=== PATIENT | female | born 1945 | race Caucasian/White ===

== ENCOUNTER → 2016-11-09 | Outpatient (REF) | payer MEDICARE, OTHER ==
[~2016-11-09] MED LIST: COZA100T2 PO; GLUC500T PO; JANU100T PO; LOSA100T36 PO; METF500T PO; OSPH1TAB PO; OSPHENA PO; PERCOCET PO; SIMV20TA2 PO; VITMTA PO; ZOCAR PO
== END ==
LOC: M LAB REF 12:28
PROVIDERS: ATTEND Internal Medicine
DX: R20.0 Anesthesia of skin (principal)

== ENCOUNTER → 2017-04-30 | Outpatient (CLI) | payer MEDICARE, OTHER ==
[~2017-04-30] MED LIST changes: -METF500T PO; +METF500T13 PO
--- NOTE | 2017-04-30 16:22 | REPMRS ---
Patient History The patient states she had a clinical breast exam in 05/04 Patient is postmenopausal and has history of basal cell skin cancer at age 70. No known family history of cancer. Benign cyst aspiration of the left breast, 1989. Took hormonal contraceptives for 12 years. Took estrogen for 5 years 1 month. Took progesterone for 5 years. Taking unspecified hormones for 1 year. Digital Woman Screen Mammo: April 30, 2017 - Exam #: [id number] Bilateral CC and MLO view(s) were taken. Technologist: Valentina Miller, Technologist Prior study comparison: April 29, 2016, digital woman screen mammo performed at [facility] to [facility]. April 19, 2015, digital woman screen mammo performed at [facility]. May 04, 2014, bilateral bilat screen digital mammo, performed at [facility] ([facility]). FINDINGS: The breast tissue is heterogeneously dense. This may lower the sensitivity of mammography. There is a moderate amount of heterogeneously dense fibroglandular tissue which is fairly symmetric. There is no interval development of dominant mass, architectural distortion, or clustered microcalcification typical of malignancy. There has been no change in the appearance of the mammogram from the prior studies. ASSESSMENT: BI-RADS/ACR category 1 mammogram. Negative. Recommendation Routine screening mammogram of both breasts in 1 year (for women over age 40). This mammogram was interpreted with the aid of an FDA-approved computer-aided dectection system. Electronically Signed By: Nestor Connolly MD 04/30/17 [id number]
== END ==
LOC: M WHC 12:29
PROVIDERS: ATTEND Obstetrics & Gynecology
DX: Z12.31 Encounter for screening mammogram for malignant neoplasm of breast (principal)

== ENCOUNTER → 2018-05-02 | Outpatient (CLI) | payer MEDICARE, OTHER | LOC: M WHC 12:34 | DX: Z12.31 Encounter for screening mammogram for malignant neoplasm of breast (principal) | CPT/HCPCS: 77067 ==

== ENCOUNTER 2019-05-07 09:39 | Emergency (ER) | payer MEDICARE, OTHER ==
[~2019-05-07] VITALS: Ht 162.6 cm; Wt 69.7 kg
[~2019-05-07 09:39] MED LIST changes: -LOSA100T36 PO; +LOSA100T50 PO
[2019-05-07 10:31] LABS: BASO # 0.1 10^3/uL (0.0-0.2); BASO % 0.7 % (0.0-1.0); EOS % 0.1 % (0.0-3.0); LYMPH # 1.6 10^3/uL (1.5-5.0); LYMPH % 21.6 % (24.0-44.0); MEAN CORPUSCULAR HEMOGLOBIN 31.6 pg (27.0-33.0); MEAN CORPUSCULAR HGB CONC 33.3 g/dl (32.0-36.5); MEAN CORPUSCULAR VOLUME 94.8 fl (80.0-96.0); MONO # 0.6 10^3/uL (0.0-0.8); MONO % 8.5 % (0.0-5.0); NEUTROPHILS % 68.3 % (36.0-66.0); PLATELET COUNT, AUTOMATED 195 10^3/uL (150-450); RED BLOOD COUNT 3.48 10^6/uL (4.00-5.40); WHITE BLOOD COUNT 7.3 10^3/uL (4.0-10.0)
--- NOTE | 2019-05-07 10:39 | REP ---
CT study of the cervical spine without contrast: History: Trauma. Comparison radiographs are from November 28, 2015. Technique: Helical scanning is acquired and overlapping 2 mm high resolution axial images were generated and reviewed at bone and soft tissue window settings. Coronal and sagittal multiplanar re-formations images are generated. CT findings: There is no evidence of cervical spine element fracture. No skull base fracture is seen. Cervical vertebral body heights are preserved. Alignment is normal. Facet joints are normally aligned bilaterally at each cervical level on multiplanar re-formations images. There is no evidence of intraspinal or paraspinal hematoma. No extra vertebral abnormality is seen. There are fairly advanced degenerative spondylosis changes in the cervical spine. Degenerative disc changes are most pronounced at C5-6. 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 This is most pronounced on the left at C 03/04 and C4-5. Impression: Degenerative spondylosis changes. Otherwise negative CT study of the cervical spine without contrast. No fracture seen. Electronically Signed by Hamzah Connolly MD 05/07/2019 10:30 A
[2019-05-07 10:42] LABS: INR 1.04; PROTHROMBIN TIME 13.4 SECONDS (11.8-14.0)
--- NOTE | 2019-05-07 10:42 | REP ---
CT brain without contrast: History: Trauma. Findings: Preliminary digital professional sports scout radiograph is unremarkable. The bony calvarium is intact. No skull fracture is appreciated. Visualized paranasal sinuses are clear. No intraorbital abnormality is appreciated. Vascular calcification is observed in the distal vertebral and distal carotid arteries. There is mild generalized volume loss. Periventricular low density pattern is seen consistent with small vessel atherosclerotic changes. No evidence of intracranial hemorrhage is seen. No infarct, mass, extra-axial fluid collection, or midline shift is seen. Impression: Generalized volume loss and small vessel changes. Vascular calcification. No skull fracture or acute intracranial injury. Electronically Signed by Hamzah Connolly MD 05/07/2019 11:25 A
[2019-05-07 10:59] LABS: ALBUMIN 3.6 GM/DL (3.2-5.2); ALT/SGPT 33 U/L (12-78); BILIRUBIN,DIRECT 0.1 MG/DL (0.0-0.2); BILIRUBIN,TOTAL 0.5 MG/DL (0.2-1.0); BLOOD UREA NITROGEN 20 MG/DL (7-18); CARBON DIOXIDE LEVEL 25 MEQ/L (21-32); CHLORIDE LEVEL 101 MEQ/L (98-107); CK-MB VALUE MASS < 1.0 NG/ML (<3.6); CPK CREATINE PHOSPHOKINASE 69 U/L (26-192); FREE T4 0.92 NG/DL (0.76-1.46); GLOMERULAR FILTRATION RATE 46.6 (>39); GLUCOSE, FASTING 175 MG/DL (70-100); MB/CK RELATIVE INDEX 1.45 (< OR =4); POTASSIUM SERUM 4.8 MEQ/L (3.5-5.1); SODIUM LEVEL 135 MEQ/L (136-145); THYROID STIMULATING HORMONE 0.555 uIU/ML (0.358-3.740); TOTAL PROTEIN 7.4 GM/DL (6.4-8.2); TROPONIN I < 0.02 NG/ML (< 0.10)
--- NOTE | 2019-05-07 11:31 | REP ---
Bilateral elbow series: Eight views. History: Trauma. Findings: An intravenous cannula is seen projecting in the antecubital soft tissues on the right. There is no evidence of right-sided fracture or subluxation. No joint effusion is seen on the right. On the left, four views of the elbow demonstrate normal bones, joints and soft tissues. No fracture is seen. Impression: No fracture noted. Electronically Signed by Hamzah Connolly MD 05/07/2019 11:22 A
[2019-05-07] MEDS ORDERED: IBUPROFEN 600 MG TAB PO ONE (11:45)
[2019-05-07 12:15] LABS: INFLUENZA A AMPLIFICATION NEGATIVE (NEGATIVE); INFLUENZA B AMPLIFICATION NEGATIVE (NEGATIVE)
[2019-05-07] MEDS ORDERED: NS 1,000 ML IV ONE (12:15)
--- NOTE | 2019-05-07 13:20 | REP ---
Chest x-ray: Two views. History: Trauma. Comparison chest x-ray: December 06, 2014. Findings: The lungs are symmetrically aerated and clear. Pleural angles are sharp. Heart size is normal. Pulmonary vasculature is not increased. No significant bony abnormality. Impression: No active disease. Electronically Signed by Hamzah Connolly MD 05/07/2019 02:23 P
[2019-05-07] MEDS ORDERED: NS 1,000 ML IV SCH (13:58)
[2019-05-07 15:59] VITALS: BP 133/66
--- NOTE | 2019-05-07 19:06 | ECGEPIP ---
[facility] - ED Test Date: 2019-05-07 Pat Name: LEO ROSALES Department: Room: - Gender: Female Manager Mba: ZAIN : 1945 Requested By: KIRA Lawrence Order Number: [id number] Reading MD: Konstantin Hand Measurements Intervals Sylvia Rate: 105 P: 45 OK: 143 QRS: 51 QRSD: 80 T: 52 QT: 297 QTc: 394 Interpretive Statements SINUS TACHYCARDIA NSTTW ABNORMALITIES SIMILAR TO 12/06/14 Electronically Signed on 05-07-2019 19:06:37 EDT by Konstantin Hand
== END 2019-05-07 16:01 | disposition home or self-care (01) ==
LOC: M ED 09:39
DX: R53.1 Weakness (principal); S50.01XA Contusion of right elbow, initial encounter; S50.02XA Contusion of left elbow, initial encounter; X58.XXXA Exposure to other specified factors, initial encounter; Y92.89 Other specified places as the place of occurrence of the external cause; E11.9 Type 2 diabetes mellitus without complications; I10 Essential (primary) hypertension; E78.9 Disorder of lipoprotein metabolism, unspecified; Z79.899 Other long term (current) drug therapy; Z79.84 Long term (current) use of oral hypoglycemic drugs

== ENCOUNTER → 2020-05-27 | Outpatient (CLI) | payer MEDICARE, OTHER ==
[~2020-05-27] MED LIST changes: -SIMV20TA2 PO; +SIMV20TA22 PO
--- NOTE | 2020-05-27 14:18 | REPMRS ---
Patient History The patient states she had a clinical breast exam in April 2020.No known family history of cancer. Benign cyst aspiration of the left breast, 1989. Took hormonal contraceptives for 12 years. Took estrogen for 5 years 1 month. Took progesterone for 5 years. Took unspecified hormones for 1 year. Digital Woman Screen Mammo: May 27, 2020 - Exam #: [id number] Bilateral CC and MLO view(s) were taken. Technologist: Amy Gutierrez, Technologist Prior study comparison: May 02, 2018, bilateral digital woman screen mammo performed at [facility]. April 30, 2017, digital woman screen mammo performed at [facility]. April 29, 2016, digital woman screen mammo performed at [facility]. FINDINGS: The breast tissue is heterogeneously dense. This may lower the sensitivity of mammography. The Volpara volumetric breast density category is: C. There is a moderate amount of heterogeneously dense fibroglandular tissue which is fairly symmetric. There is no interval development of dominant mass, architectural distortion, or grouped microcalcification typical of malignancy. There has been no change in the appearance of the mammogram from the prior studies. 3-D tomosynthesis shows no additional findings. Assessment: BI-RADS/ACR category 1 mammogram. Negative Mammogram. Recommendation Routine screening mammogram of both breasts in 1 year (for women over age 40). This patient's Lifetime Breast Cancer RIsk is estimated at 2.9 %. This mammogram was interpreted with the aid of an FDA-approved computer-aided dectection system. Electronically Signed By: Nestor Connolly MD 05/27/20 [id number]
== END ==
LOC: M WHC 12:02
PROVIDERS: ATTEND Obstetrics & Gynecology
DX: Z12.31 Encounter for screening mammogram for malignant neoplasm of breast (principal)

== ENCOUNTER → 2020-12-03 | Outpatient (REF) | payer MEDICARE, OTHER ==
[2020-12-04 13:20] LABS: PERCENT SATURATION 28.5 % (13.2-45.0)
== END ==
LOC: M LAB REF 12:26
PROVIDERS: ATTEND Internal Medicine
DX: D64.9 Anemia, unspecified (principal); N18.9 Chronic kidney disease, unspecified

== ENCOUNTER → 2021-05-20 | Outpatient (REF) | payer MEDICARE, OTHER | LOC: M LAB REF 11:09 | PROVIDERS: ATTEND Internal Medicine | DX: I12.9 Hypertensive chronic kidney disease with stage 1 through stage 4 chronic kidney disease, or unspecified chronic kidney disease (principal); N18.9 Chronic kidney disease, unspecified ==